=== PATIENT | female | born 1965 | race Two or more races ===

== ENCOUNTER 2019-03-17 09:19 | Inpatient (IN) | payer MEDICAID ==
[~2019-03-17] VITALS: Ht 157.5 cm; Wt 51.8 kg
[2019-03-17] MEDS ORDERED: ONDANSETRON HCL 4MG/2ML INJ IV STA (09:40)
[2019-03-17] MEDS ORDERED: MORPHINE SULFATE 4 MG/ML CPJ (NOT FOR IM USE) IV STA (09:40)
[2019-03-17] MEDS ORDERED: HYDRALAZINE 20MG/ML VIAL IV ONE (09:45)
[2019-03-17 10:04] LABS: BASOPHILS % 0.8 % (0.0-2.0); EOSINOPHILS % 2.7 % (0.0-5.0); HEMATOCRIT. 43.2 % (36.0-48.0); HEMOGLOBIN. 14.8 g/dL (12.0-16.0); LYMPHOCYTES % 39.4 % (20.0-50.0); MEAN CORPUSCULAR HEMOGLOBIN 30.6 pg (28.0-32.0); MEAN CORPUSCULAR VOLUME 89.3 fL (81.0-99.0); MONOCYTES % 7.8 % (2.0-8.0); NEUTROPHILS % 49.3 % (40.0-76.0); PLATELET 215 x1000/uL (130-400); RED BLOOD CELL COUNT 4.84 mill/uL (4.2-5.4); RED CELL DISTRIBUTION WIDTH 13.4 % (11.6-14.6)
[2019-03-17 10:12] LABS: CHLORIDE 107 mEq/L (98-107)
[2019-03-17] MEDS ORDERED: ASPIRIN 325MG EC TABLET PO ONE (10:30)
[2019-03-17] MEDS ORDERED: MORPHINE SULFATE 4 MG/ML CPJ (NOT FOR IM USE) IV ONE (11:30)
[2019-03-17] MEDS ORDERED: POTASSIUM CHLORIDE 20MEQ TABLET SR PO NR (16:45)
[2019-03-17] MEDS ORDERED: GUAIFENESIN 200MG/10ML SUGAR FREE UDC PO PRN (16:45)
[2019-03-17] MEDS ORDERED: CLONIDINE 0.1MG TABLET PO PRN (16:45)
[2019-03-17] MEDS ORDERED: DOCUSATE SODIUM 100MG CAPSULE PO PRN (16:45)
[2019-03-17] MEDS ORDERED: NITROGLYCERIN 0.4MG TABLET SL SL PRN (16:45)
[2019-03-17] MEDS ORDERED: IPRATROPIUM/ALBUTEROL 0.5-3(2.5)MG/3ML NEB HHN PRN (16:45)
[2019-03-17] MEDS ORDERED: AMLODIPINE 5MG TABLET PO NR (17:00)
[2019-03-17] MEDS: ONDANSETRON HCL 4MG/2ML INJ IV PRN (17:07)
[2019-03-17] MEDS: HYDROCODONE/ACETAMINOPHEN 5/325MG TABLET PO PRN (17:07)
[2019-03-17] MEDS ORDERED: LABETALOL 5MG/ML SYR 20 MG/4 ML SYRINGE IV PRN (18:45)
[2019-03-17 18:47] LABS: LDL CHOLESTEROL 143 mg/dL (5-100)
[2019-03-17 18:48] LABS: HDL CHOLESTEROL 49 mg/dL (40-59)
[2019-03-17] MEDS: ACETAMINOPHEN 325MG TABLET PO PRN ×2 (19:39→22:39)
[2019-03-17 20:00] VITALS: BP 148/76
[2019-03-17 20:40] VITALS: BP 148/76
[2019-03-17] MEDS ORDERED: LISI-186 MT (22:15)
[2019-03-17] MEDS ORDERED: CLON-457 PO (22:15)
[2019-03-17] MEDS ORDERED: METO-396 MT (22:15)
[2019-03-17] MEDS ORDERED: ESTR0.3T3 MT (22:15)
[2019-03-17] MEDS: NICOTINE 14MG PATCH TD SCH (22:41)
[2019-03-17] MEDS: LORAZEPAM 0.5MG TABLET PO PRN (22:49)
[2019-03-18] MEDS ORDERED: LABETALOL 5MG/ML SYR 20 MG/4 ML SYRINGE IV PRN
[2019-03-18] MEDS: ONDANSETRON HCL 4MG/2ML INJ IV PRN (06:27)
[2019-03-18 06:33] LABS: CHLORIDE 104 mEq/L (98-107)
[2019-03-18 06:43] LABS: BASOPHILS % 0.7 % (0.0-2.0); EOSINOPHILS % 2.9 % (0.0-5.0); HEMOGLOBIN. 14.5 g/dL (12.0-16.0); LYMPHOCYTES % 41.2 % (20.0-50.0); MEAN CORPUSCULAR HEMOGLOBIN 30.4 pg (28.0-32.0); MEAN CORPUSCULAR VOLUME 90.5 fL (81.0-99.0); MEAN PLATELET VOLUME 10.4 fl (7.4-10.4); MONOCYTES % 8.5 % (2.0-8.0); NEUTROPHILS % 46.7 % (40.0-76.0); PLATELET 220 x1000/uL (130-400); RED BLOOD CELL COUNT 4.75 mill/uL (4.2-5.4); RED CELL DISTRIBUTION WIDTH 13.6 % (11.6-14.6)
[2019-03-18 08:00] VITALS: BP 134/78
[2019-03-18] MEDS: AMLODIPINE 5MG TABLET PO SCH (09:46)
[2019-03-18] MEDS: NICOTINE 14MG PATCH TD SCH (09:47)
[2019-03-18] MEDS: MORPHINE SULFATE 2 MG/ML CPJ (NOT FOR IM USE) IV PRN ×2 (09:55→16:12)
[2019-03-18 13:51] VITALS: BP 141/80
[2019-03-18 15:36] LABS: *AMPHETAMINES SCREEN URINE NEGATIVE (NEGATIVE)
[2019-03-18 15:38] LABS: *BARBITURATES SCREEN URINE NEGATIVE (NEGATIVE); *BENZODIAZEPINES SCREEN URINE NEGATIVE (NEGATIVE); *COCAINE SCREEN URINE NEGATIVE (NEGATIVE); METHADONE URINE SCREEN NEGATIVE (NEGATIVE); OPIATES URINE SCREEN PRESUMTIVE POSITIVE (NEGATIVE)
[2019-03-18 15:40] LABS: CANNABINOID URINE SCREEN PRESUMTIVE POSITIVE (NEGATIVE)
[2019-03-18 15:41] LABS: PHENCYCLIDINE URINE SCREEN NEGATIVE (NEGATIVE)
[2019-03-18 16:51] VITALS: BP 140/83
[2019-03-18 20:36] VITALS: BP 156/81
[2019-03-18] MEDS: LORAZEPAM 0.5MG TABLET PO PRN (22:45)
[2019-03-19] VITALS (7 sets, daily range): BP systolic 119–159; BP diastolic 71–97
[2019-03-19 07:24] LABS: CHLORIDE 101 mEq/L (98-107)
[2019-03-19 07:54] LABS: BASOPHILS % 0.6 % (0.0-2.0); EOSINOPHILS % 3.1 % (0.0-5.0); HEMOGLOBIN. 16.1 g/dL (12.0-16.0); LYMPHOCYTES % 40.1 % (20.0-50.0); MEAN CORPUSCULAR VOLUME 90.7 fL (81.0-99.0); MEAN PLATELET VOLUME 10.5 fl (7.4-10.4); NEUTROPHILS % 47.2 % (40.0-76.0); PLATELET 252 x1000/uL (130-400); RED BLOOD CELL COUNT 5.19 mill/uL (4.2-5.4); RED CELL DISTRIBUTION WIDTH 13.9 % (11.6-14.6)
[2019-03-19] MEDS: AMLODIPINE 5MG TABLET PO SCH (08:41)
[2019-03-19] MEDS: NICOTINE 14MG PATCH TD SCH (08:42)
[2019-03-19] MEDS: DILTIAZEM HCL 180MG CAPSULE CD 24HR PO SCH (11:17)
[2019-03-19] MEDS: HYDROCODONE/ACETAMINOPHEN 5/325MG TABLET PO PRN (12:28)
[2019-03-19] MEDS: ONDANSETRON HCL 4MG/2ML INJ IV PRN (14:38)
[2019-03-19] MEDS: ACETAMINOPHEN 325MG TABLET PO PRN (15:45)
[2019-03-19] MEDS: LORAZEPAM 0.5MG TABLET PO PRN (20:04)
[2019-03-19] MEDS ORDERED: ATORVASTATIN CALCIUM 20MG TABLET PO SCH (21:00)
[2019-03-20 00:31] VITALS: BP 116/57
[2019-03-20] MEDS: ACETAMINOPHEN 325MG TABLET PO PRN (00:43)
[2019-03-20 04:00] VITALS: BP 120/69
[2019-03-20 08:00] VITALS: BP 140/78
[2019-03-20] MEDS: DILTIAZEM HCL 180MG CAPSULE CD 24HR PO SCH (08:45)
[2019-03-20] MEDS: NICOTINE 14MG PATCH TD SCH (08:46)
[2019-03-20 09:01] LABS: CHLORIDE 102 mEq/L (98-107)
[2019-03-20 09:10] LABS: BASOPHILS % 0.8 % (0.0-2.0); EOSINOPHILS % 2.7 % (0.0-5.0); HEMATOCRIT. 44.4 % (36.0-48.0); HEMOGLOBIN. 15.1 g/dL (12.0-16.0); LYMPHOCYTES % 40.4 % (20.0-50.0); MEAN CORPUSCULAR HEMOGLOBIN 30.9 pg (28.0-32.0); MEAN PLATELET VOLUME 10.3 fl (7.4-10.4); MONOCYTES % 10.8 % (2.0-8.0); NEUTROPHILS % 45.3 % (40.0-76.0); PLATELET 232 x1000/uL (130-400); RED BLOOD CELL COUNT 4.88 mill/uL (4.2-5.4); RED CELL DISTRIBUTION WIDTH 13.9 % (11.6-14.6)
[2019-03-20 12:00] VITALS: BP 125/77
[2019-03-20] MEDS ORDERED: ATOR20TA PO (12:32)
[2019-03-20] MEDS ORDERED: DILT180C66 PO (12:32)
[2019-03-20 13:27] VITALS: BP 125/77
[2019-03-20 15:30] VITALS: BP 128/80
== END 2019-03-20 13:40 | disposition home or self-care (01) | DRG 198 ==
LOC: ER 09:19 → ENRESERV 19:42 → 6WST 20:47
PROVIDERS: ADMIT Internal Medicine; ATTEND Internal Medicine
DX: I24.8 Other forms of acute ischemic heart disease (principal); E78.00 Pure hypercholesterolemia, unspecified; R07.89 Other chest pain; I16.1 Hypertensive emergency; J44.9 Chronic obstructive pulmonary disease, unspecified; E87.6 Hypokalemia; E78.5 Hyperlipidemia, unspecified; F12.90 Cannabis use, unspecified, uncomplicated; F43.10 Post-traumatic stress disorder, unspecified; I10 Essential (primary) hypertension; F17.200 Nicotine dependence, unspecified, uncomplicated; I45.10 Unspecified right bundle-branch block; Z90.710 Acquired absence of both cervix and uterus; Z85.42 Personal history of malignant neoplasm of other parts of uterus; Z91.19 Patient's noncompliance with other medical treatment and regimen; Z98.51 Tubal ligation status; Z79.899 Other long term (current) drug therapy
CPT/HCPCS: 36415; 71045; 80048; 80053; 80061; 80305; 83036; 83880; 84484; 85025; 85379; 93005; 93306; 96374; 99285; 99406; C1893; J0360; J2270; J2405; J3490